=== PATIENT | male | born 1955 | race Caucasian/White ===

== ENCOUNTER 2017-07-26 19:19 | Emergency (ER) | payer MEDICAID, OTHER ==
[~2017-07-26] VITALS: Ht 170.2 cm; Wt 70.3 kg
[~2017-07-26 19:19] MED LIST: ATOR20TA PO; CARV3.122 PO; ERGO500014 PO; FURO20TA4 PO; ISOS30TA6 PO; LISI10TA59 PO; WARF2.5T85 PO
--- NOTE | 2017-07-26 19:32 | NUR ---
PT BIB HIS SONS WITH A C/O BLOOD IN THE URINE. PT IS BULGARIAN SPEAKING ONLY AND IS DEAF. PT IS C/O BLOOD IN HIS URINE. PT AMBULATED TO BED #4 WITH A STEADY GAIT. PT WAS PLACED ON THE MONITOR AND CONTINOUS PULSE OX. PT'S SONS ARE AT THE BEDSIDE.
--- NOTE | 2017-07-26 19:52 | NUR ---
IV STARTED AND BLOOD DRAWN.
[2017-07-26 19:54] LABS: BASOPHILS # (AUTO) 0.3 /CMM (0.0-0.2); BASOPHILS % (AUTO) 2.2 % (0.0-2.0); EOSINOPHILS % (AUTO) 0.5 % (0.0-6.0); HEMATOCRIT 29 % (39-51); HEMOGLOBIN 9.9 g/dL (13.5-17.5); LYMPHOCYTES # (AUTO) 1.2 /CMM (0.8-4.8); LYMPHOCYTES % (AUTO) 8.1 % (20.0-44.0); MEAN CORPUSCULAR HGB CONC 35 g/dl (31.0-36.0); MEAN CORPUSCULAR VOLUME 90 fL (80-96); MONOCYTES # (AUTO) 1.7 /CMM (0.1-1.30); MONOCYTES % (AUTO) 10.8 % (2.0-12.0); NEUTROPHILS # (AUTO) 12.1 /CMM (1.8-8.9); NEUTROPHILS % (AUTO) 78.4 % (43.0-81.0); PLATELET COUNT (AUTO) 150 /CMM (150-450); RDW COEFFICIENT OF VARIATION 14.1 (11.5-15.0); RED BLOOD CELL COUNT(AUTO) 3.18 MIL/uL (4.5-6.0); WHITE BLOOD COUNT (AUTO) 15.4 K/uL (4.3-11.0)
[2017-07-26] MEDS ORDERED: LEVOFLOXACIN 750 MG /D5W 150ML 150 ML IV ONE ×2 (20:00→21:02)
[2017-07-26] MEDS ORDERED: IV NS 0.9% 1,000 ML BAG IV ONE ×2 (20:00→20:30)
[2017-07-26 20:04] LABS: CALCIUM, SERUM 8.1 mg/dL (8.5-10.1); CREATININE 1.4 mg/dL (0.6-1.3); POTASSIUM 3.5 mmol/L (3.5-5.1)
[2017-07-26 20:08] LABS: INR 2.78 (0.85-1.15)
[2017-07-26] MEDS ORDERED: ZOLP10TA2 PO (20:18)
[2017-07-26] MEDS ORDERED: CARV6.252 PO (20:18)
[2017-07-26] MEDS ORDERED: SACU1TAB7 PO (20:18)
[2017-07-26] MEDS ORDERED: GABA-532 PO (20:18)
[2017-07-26] MEDS ORDERED: HYDR-3974 PO (20:18)
--- NOTE | 2017-07-26 21:00 | NUR ---
URINE SAMPLE OBTAINED AND SENT TO LAB.
[2017-07-26 21:07] LABS: APPEARANCE,URINE Cloudy (CLEAR); BILIRUBIN,URINE Negative (NEGATIVE); BLOOD, URINE Large Ery/uL (NEGATIVE); COLOR,URINE Yellow (YELLOW); KETONES,URINE Trace (NEGATIVE); LEUKOCYTE ESTERASE ,URINE Large (NEGATIVE); NITRITE, URINE Positive (NEGATIVE); PH,URINE 5.5 (5.0-8.0); PROTEIN,URINE 100 mg/dl (NEGATIVE); UGLUCOSE Negative (NEGATIVE)
[2017-07-26 21:20] LABS: BACTERIA,URINE Many /HPF (None Seen); SQUAMOUS EPITHELIAL CELL,UR Few /HPF (None Seen)
[2017-07-26 21:23] LABS: URINE AMORPHOUS URATE Many /HPF (None Seen); WBC,URINE 21-50 /HPF (0-3)
[2017-07-26] MEDS ORDERED: ACETAMINOPHEN ES 500 MG TABLET PO ONE (22:00)
[2017-07-26] MEDS ORDERED: ACETAMINOPHEN ES 500 MG TABLET ONE (22:20)
--- NOTE | 2017-07-26 22:48 | NUR ---
IV removed. Catheter intact and site benign. Pressure and 4x4 applied to site. No bleeding noted.Patient discharged to home in stable condition. Written and verbal after care instructions given. Patient verbalizes understanding of instruction AND RX. PT TO F/U WITH PMD.
--- NOTE | 2017-07-26 22:50 | NUR ---
PT REC'D A COPY OF ALL LABS AND CT FINDINGS.
[2017-07-26 22:53] VITALS: BP 116/62
== END 2017-07-26 22:54 | disposition home or self-care (01) ==
LOC: ER 19:22
DX: R31.9 Hematuria, unspecified (principal); N39.0 Urinary tract infection, site not specified; N28.9 Disorder of kidney and ureter, unspecified; I10 Essential (primary) hypertension; Z79.01 Long term (current) use of anticoagulants; Z95.0 Presence of cardiac pacemaker; Z95.2 Presence of prosthetic heart valve
CPT/HCPCS: 36415; 74176; 80048; 81001; 85025; 85730; 87077; 87086; 87186; 96361; 96365; 99285; A4606; J1956; J7030; Z7610; 81000-TC

== ENCOUNTER 2018-03-13 12:34 | Inpatient (IN) | payer OTHER ==
[~2018-03-13] VITALS: Ht 175.3 cm; Wt 64.4 kg
[~2018-03-13 12:34] MED LIST changes: -CARV3.122 PO; +CARV6.252 PO; +GABA-532 PO; +HYDR-3974 PO; +SACU1TAB7 PO; +ZOLP10TA2 PO
[2018-03-13 13:04] LABS: BASOPHILS % (AUTO) 0.6 % (0.0-2.0); EOSINOPHILS % (AUTO) 0.6 % (0.0-6.0); HEMATOCRIT 32 % (39-51); HEMOGLOBIN 11.1 g/dL (13.5-17.5); LYMPHOCYTES # (AUTO) 1.3 /CMM (0.8-4.8); LYMPHOCYTES % (AUTO) 20.3 % (20.0-44.0); MEAN CORPUSCULAR HGB CONC 34 g/dl (31.0-36.0); MEAN CORPUSCULAR VOLUME 95 fL (80-96); MONOCYTES # (AUTO) 0.5 /CMM (0.1-1.30); MONOCYTES % (AUTO) 7.5 % (2.0-12.0); NEUTROPHILS # (AUTO) 4.7 /CMM (1.8-8.9); PLATELET COUNT (AUTO) 161 /CMM (150-450); WHITE BLOOD COUNT (AUTO) 6.6 K/uL (4.3-11.0)
[2018-03-13] MEDS ORDERED: DIGO125T PO (13:11)
[2018-03-13] MEDS ORDERED: POTA8TAB3 PO (13:11)
[2018-03-13 13:12] LABS: CALCIUM, SERUM 8.7 mg/dL (8.5-10.1); CREATININE 1.1 mg/dL (0.6-1.3); POTASSIUM 4.7 mmol/L (3.5-5.1)
[2018-03-13] MEDS ORDERED: IVAB5TAB PO (13:13)
[2018-03-13] MEDS ORDERED: IV NS 0.9% 250 ML IV ONE (13:27)
[2018-03-13] MEDS ORDERED: CT SWABBABLE VALVE TRANS SET 1 EA INFUS.SET MC ONE (13:27)
[2018-03-13] MEDS ORDERED: IOHEXOL-350 100 ML VIAL IV ONE (13:27)
[2018-03-13] MEDS ORDERED: FENTANYL PF 100MCG/2ML AMPUL IV ONE (13:30)
[2018-03-13] MEDS ORDERED: FENTANYL PF 100MCG/2ML AMPUL ONE (13:33)
[2018-03-13] MEDS ORDERED: ASPIRIN 81 MG TAB.CHEW PO ONE ×2 (15:00→20:00)
[2018-03-13] MEDS ORDERED: ASPIRIN 81 MG TAB.CHEW ONE (15:04)
[2018-03-13 16:30] VITALS: BP 115/48
[2018-03-13] MEDS ORDERED: HYDROCODONE/APAP 5/325MG 1 EACH TABLET PO PRN (17:30)
[2018-03-13] MEDS ORDERED: ACETAMINOPHEN ES 500 MG TABLET PO PRN (17:30)
[2018-03-13] MEDS ORDERED: ZOLPIDEM TARTRATE 10 MG TABLET PO PRN (17:30)
[2018-03-13] MEDS: CARVEDILOL 6.25 MG TABLET PO SCH (18:39)
[2018-03-13] MEDS: GABAPENTIN 100 MG CAPSULE PO SCH (18:39)
[2018-03-13 20:00] VITALS: BP 113/46
[2018-03-13] MEDS ORDERED: ZOLPIDEM TARTRATE 10 MG TABLET PO SCH (22:00)
[2018-03-14] VITALS: BP 90/48
[2018-03-14 04:00] VITALS: BP 95/44
[2018-03-14 08:00] VITALS: BP 96/43
[2018-03-14] MEDS ORDERED: FUROSEMIDE 20 MG TABLET PO SCH (09:00)
[2018-03-14] MEDS ORDERED: CORLANOR 5 MG PO SCH ×2 (09:00)
[2018-03-14] MEDS ORDERED: POTASSIUM CHLORIDE 10 MEQ TABLET.SA PO SCH (09:00)
[2018-03-14] MEDS ORDERED: ATORVASTATIN 10 MG TABLET PO SCH (09:00)
[2018-03-14] MEDS ORDERED: ENTRESTO PO SCH (09:00)
[2018-03-14 09:22] LABS: CHOLESTEROL 117 mg/dL (<200); HDL CHOLESTEROL 63 mg/dL (40-60); LDL 52 mg/dL (0-99); TRIGLYCERIDES 67 mg/dL (30-150)
[2018-03-14 09:28] VITALS: BP 107/55
[2018-03-14] MEDS: GABAPENTIN 100 MG CAPSULE PO SCH (09:28)
[2018-03-14] MEDS: CARVEDILOL 6.25 MG TABLET PO SCH (09:28)
[2018-03-14] MEDS ORDERED: DIGOXIN 0.125 MG TABLET PO SCH (13:00)
[2018-03-14] MEDS ORDERED: WARFARIN SODIUM 2.5 MG TABLET PO SCH (17:00)
== END 2018-03-14 11:03 | disposition home or self-care (01) | DRG 203 ==
LOC: ER 12:36 → TELE-TD 15:12
PROVIDERS: ADMIT Internal Medicine; ATTEND Internal Medicine
DX: R07.89 Other chest pain (principal); I11.0 Hypertensive heart disease with heart failure; I50.22 Chronic systolic (congestive) heart failure; I48.91 Unspecified atrial fibrillation; I34.0 Nonrheumatic mitral (valve) insufficiency; Z95.2 Presence of prosthetic heart valve; Z95.810 Presence of automatic (implantable) cardiac defibrillator; Z79.01 Long term (current) use of anticoagulants; K21.9 Gastro-esophageal reflux disease without esophagitis; Z79.899 Other long term (current) drug therapy; E78.5 Hyperlipidemia, unspecified
CPT/HCPCS: 36415; 71045-TC; 80048-TC; 80061-TC; 84484-TC; 85025-TC; 85610-TC; 85730-TC; 87081-TC; 93307-TC; A6402; G0378; J3010; J7050; Q9967